=== PATIENT | male | born 1975 | race Caucasian/White ===

== ENCOUNTER 2024-06-12 10:09 | Inpatient (IN) | payer OTHER ==
[~2024-06-12] VITALS: Ht 182.9 cm; Wt 104.6 kg
[2024-06-12] VITALS (17 sets, daily range): BP systolic 141–186; BP diastolic 72–88; PULSE 77–109; RESP 16–25; TEMP 36.9–37.2; O2SAT 97–100
[2024-06-12] MEDS: INSULIN REGULAR (HUMULIN R) 1000UNITS/10ML VIAL SUBCUT ONE (10:38)
[2024-06-12] MEDS: ONDANSETRON 4MG ODT PO ONE (10:38)
[2024-06-12 10:49] LABS: BASOPHILS % 0.4 % (0.0-2.0); EOSINOPHILS % 0.1 % (0.0-5.0); HEMATOCRIT. 43.2 % (42.0-52.0); HEMOGLOBIN. 14.5 g/dL (14.0-18.0); LYMPHOCYTES % 7.2 % (20.0-50.0); MEAN CORPUSCULAR HEMOGLOBIN 29.3 pg (28.0-32.0); MEAN CORPUSCULAR HGB CONC 33.5 g/dL (31.0-37.0); MEAN CORPUSCULAR VOLUME 87.4 fL (80.0-94.0); MEAN PLATELET VOLUME 8.9 fl (7.4-10.4); MONOCYTES % 3.4 % (2.0-8.0); NEUTROPHILS % 88.9 % (40.0-76.0); PLATELET 264 x1000/uL (130-400); RED BLOOD CELL COUNT 4.94 mill/uL (4.7-6.1); RED CELL DISTRIBUTION WIDTH 14.2 % (11.6-14.6); WHITE BLOOD COUNT 12.7 x1000/uL (4.5-11.0)
[2024-06-12 10:59] LABS: CHLORIDE 99 mEq/L (98-107); POTASSIUM 4.5 mEq/L (3.5-5.1); SODIUM 135 mEq/L (136-145)
[2024-06-12 11:00] LABS: CALCIUM 9.3 mg/dL (8.7-10.4); CARBON DIOXIDE 13 mEq/L (21-32)
[2024-06-12 11:05] LABS: CREATININE 1.1 mg/dL (0.6-1.3); GLUCOSE 379 mg/dL (70-105); UREA NITROGEN BLOOD 11 mg/dL (9-23)
[2024-06-12] MEDS ORDERED: DEXTROSE 50% WATER 50ML SYRINGE IV PRN ×2 (11:15→13:00)
[2024-06-12] MEDS: DEXT 5%/0.9% NACL 1,000 ML IV SCH ×2 (11:15→14:13)
[2024-06-12] MEDS ORDERED: MAGNESIUM 2 G PREMIX 50 ML IV PRN ×2 (11:15→13:00)
[2024-06-12] MEDS ORDERED: INSULIN REGULAR (DRIP) 100 UNITS in SODIUM CHLORIDE 0.9% 99 ML IV SCH ×2 (11:15→13:00)
[2024-06-12] MEDS ORDERED: BLOOD SUGAR DIAGNOSTIC STRIP TEST PRN ×2 (11:15→13:00)
[2024-06-12] MEDS ORDERED: SODIUM PHOSPHATE 15 MMOL in SODIUM CHLORIDE 0.9% 245 ML IV PRN ×2 (11:15→13:00)
[2024-06-12] MEDS ORDERED: POTASSIUM CHLORIDE 40 MEQ in SODIUM CHLORIDE 0.9% 230 ML IV PRN ×2 (11:15→13:00)
[2024-06-12 11:29] LABS: ALANINE AMINOTRANSFERASE 19 IU/L (10-49); ALBUMIN 4.3 g/dL (3.2-4.8); ASPARTATE AMINOTRANSFERASE 18 IU/L (<34); BILIRUBIN DIRECT 0.3 mg/dL (<=3.0); PHOSPHORUS 3.4 mg/dL (2.5-4.9); PROTEIN TOTAL 7.5 g/dL (6.0-8.3)
[2024-06-12] MEDS: SODIUM CHLORIDE 0.9% 1,000 ML IV SCH ×3 (11:53→23:35)
[2024-06-12] MEDS: SODIUM CHLORIDE 0.9% 1,000 ML IV ONE (11:53)
[2024-06-12 12:00] LABS: BG BASE EXCESS -14.5 mmol/L (-2.0-3.0); BG CARBOXYHEMOGLOBIN 0.4 % (0.5-1.5); BG DEOXYHEMOGLOBIN 3.7 % (0.0-5.0); BG FRACTION INSPIRED OXYGEN 21; BG HCO3 ACT 10.6 mmol/L (21.0-28.0); BG METHEMOGLOBIN 0.4 % (0.5-1.5); BG OXYGEN SATURATION 96.3 % (94.0-98.0); BG OXYHEMOGLOBIN 95.5 % (94.0-98.0); BG PCO2 24.3 mmHg (35.0-48.0); BG PH 7.257 (7.350-7.450); BG PO2 91.2 mmHg (83.0-108.0); BG VENT MODE ROOM AIR
[2024-06-12] MEDS: INSULIN REGULAR 100U/100ML PMX 100 ML IV SCH (12:06)
[2024-06-12] MEDS: BLOOD SUGAR DIAGNOSTIC STRIP TEST SCH ×2 (12:06→13:00)
[2024-06-12] MEDS: KCL 20MEQ/100ML PREMIX 100 ML IV PRN (12:10)
[2024-06-12 12:26] LABS: BG SAMPLE SITE LEFT RADIAL
[2024-06-12] MEDS ORDERED: HYDROCODONE/ACETAMINOPHEN 5/325MG TABLET PO PRN (13:00)
[2024-06-12] MEDS ORDERED: CLONIDINE 0.1MG TABLET PO PRN (13:00)
[2024-06-12] MEDS ORDERED: ONDANSETRON HCL 4MG/2ML INJ IV PRN (13:00)
[2024-06-12] MEDS ORDERED: KCL 20MEQ/100ML PREMIX 100 ML IV PRN (13:00)
[2024-06-12] MEDS ORDERED: ACETAMINOPHEN 325MG TABLET PO PRN (13:00)
[2024-06-12] MEDS: ENOXAPARIN 40MG/0.4ML SYR SUBCUT SCH (20:57)
[2024-06-12 21:44] LABS: CHLORIDE 110 mEq/L (98-107); POTASSIUM 3.8 mEq/L (3.5-5.1); SODIUM 139 mEq/L (136-145)
[2024-06-12 21:45] LABS: CALCIUM 7.7 mg/dL (8.7-10.4); CARBON DIOXIDE 21 mEq/L (21-32)
[2024-06-12 21:50] LABS: CREATININE 0.7 mg/dL (0.6-1.3); UREA NITROGEN BLOOD 6 mg/dL (9-23)
[2024-06-12 21:51] LABS: TROPONIN I HIGH SENSITIVITY 7 ng/L (3.0-53)
[2024-06-12 21:56] LABS: GLUCOSE 130 mg/dL (70-105)
[2024-06-12 22:31] LABS: BG BASE EXCESS -7.4 mmol/L (-2.0-3.0); BG CARBOXYHEMOGLOBIN 0.5 % (0.5-1.5); BG FRACTION INSPIRED OXYGEN 21; BG HCO3 ACT 16.9 mmol/L (21.0-28.0); BG METHEMOGLOBIN 0.3 % (0.5-1.5); BG OXYHEMOGLOBIN 95.2 % (94.0-98.0); BG PCO2 30.8 mmHg (35.0-48.0); BG PH 7.356 (7.350-7.450); BG SAMPLE SITE RIGHT RADIAL; BG VENT MODE ROOM AIR
[2024-06-12] MEDS: INSULIN GLARGINE 100 UNITS/ML SUBCUT SCH (23:35)
[2024-06-13] VITALS (31 sets, daily range): BP systolic 114–187; BP diastolic 50–105; PULSE 62–98; RESP 14–27; TEMP 36.7–36.9; O2SAT 95–99
[2024-06-13 07:28] LABS: CARBON DIOXIDE 21 mEq/L (21-32); CHLORIDE 111 mEq/L (98-107); SODIUM 144 mEq/L (136-145)
[2024-06-13 07:29] LABS: CALCIUM 8.3 mg/dL (8.7-10.4)
[2024-06-13 07:31] LABS: TROPONIN I HIGH SENSITIVITY 8 ng/L (3.0-53)
[2024-06-13 07:32] LABS: BASOPHILS % 0.6 % (0.0-2.0); EOSINOPHILS % 0.9 % (0.0-5.0); HEMATOCRIT. 41.7 % (42.0-52.0); HEMOGLOBIN. 13.6 g/dL (14.0-18.0); LYMPHOCYTES % 21.8 % (20.0-50.0); MEAN CORPUSCULAR HEMOGLOBIN 29.2 pg (28.0-32.0); MEAN CORPUSCULAR HGB CONC 32.6 g/dL (31.0-37.0); MEAN CORPUSCULAR VOLUME 89.4 fL (80.0-94.0); MEAN PLATELET VOLUME 8.6 fl (7.4-10.4); MONOCYTES % 7.1 % (2.0-8.0); NEUTROPHILS % 69.6 % (40.0-76.0); PLATELET 226 x1000/uL (130-400); RED BLOOD CELL COUNT 4.67 mill/uL (4.7-6.1); RED CELL DISTRIBUTION WIDTH 13.8 % (11.6-14.6); WHITE BLOOD COUNT 8.5 x1000/uL (4.5-11.0)
[2024-06-13 07:34] LABS: CREATININE 0.7 mg/dL (0.6-1.3); GLUCOSE 98 mg/dL (70-105)
[2024-06-13 07:44] LABS: UREA NITROGEN BLOOD < 5 mg/dL (9-23)
[2024-06-13] MEDS: INSULIN LISPRO 100 UNITS/ML SUBCUT SCH (08:20)
[2024-06-13] MEDS: PANTOPRAZOLE SODIUM 40 MG/VIAL IV SCH (08:48)
[2024-06-13] MEDS: BLOOD SUGAR DIAGNOSTIC STRIP TEST SCH (08:48)
[2024-06-13 09:27] LABS: CHLORIDE 111 mEq/L (98-107); POTASSIUM 3.5 mEq/L (3.5-5.1); SODIUM 142 mEq/L (136-145)
[2024-06-13 09:28] LABS: CARBON DIOXIDE 22 mEq/L (21-32)
[2024-06-13 09:33] LABS: CREATININE 0.6 mg/dL (0.6-1.3); GLUCOSE 98 mg/dL (70-105)
[2024-06-13 10:01] LABS: UREA NITROGEN BLOOD < 5 mg/dL (9-23)
[2024-06-13 13:01] LABS: CALCIUM 7.9 mg/dL (8.7-10.4); CARBON DIOXIDE 23 mEq/L (21-32); CHLORIDE 110 mEq/L (98-107); POTASSIUM 3.3 mEq/L (3.5-5.1); SODIUM 142 mEq/L (136-145)
[2024-06-13 13:05] LABS: CREATININE 0.6 mg/dL (0.6-1.3); GLUCOSE 124 mg/dL (70-105)
[2024-06-13 13:37] LABS: UREA NITROGEN BLOOD < 5 mg/dL (9-23)
[2024-06-13] MEDS: POTASSIUM CHLORIDE 20MEQ TABLET SR PO NR (16:34)
== END 2024-06-13 17:32 | disposition home or self-care (01) | DRG 637 ==
LOC: ER 10:09 → EDBEDREQTM 12:08 → EDBEDREQ 12:08 → CVICU 14:37
PROVIDERS: ADMIT Internal Medicine; ATTEND Internal Medicine
DX: E10.10 Type 1 diabetes mellitus with ketoacidosis without coma (principal); G93.41 Metabolic encephalopathy; N17.9 Acute kidney failure, unspecified; I10 Essential (primary) hypertension; E78.5 Hyperlipidemia, unspecified; Z79.4 Long term (current) use of insulin
CPT/HCPCS: 36415; 36600; 80048; 80076; 82375; 82805; 82962; 83735; 83930; 84100; 84484; 85025; 93970; 99291; J1650; J1815; J2470; J3480; J7030; J7042; Q0162